=== PATIENT | male | born 1950 | race Caucasian/White ===

== ENCOUNTER → 2016-12-16 | Outpatient (CLI) | payer MEDICARE, OTHER ==
[~2016-12-16] MED LIST: AMLO10TA2 PO; ASPI1TAB; COUM2.5T17 PO; IBUP-1022; LISI-538 PO; METF500T13 PO; PERC5TAB12 PO; TYLE325T5 PO; amoxicillin OR; epipen IM
[2016-12-16 13:42] LABS: ALBUMIN 3.4 GM/DL (3.2-5.2); ALBUMIN/GLOBULIN RATIO 0.94 (1.00-1.93); ALKALINE PHOSPHATASE 83 U/L (45-117); ALT/SGPT 51 U/L (12-78); ANION GAP 9 MEQ/L (8-16); AST/SGOT 33 U/L (15-37); BILIRUBIN,TOTAL 0.5 MG/DL (0.2-1.0); BLOOD UREA NITROGEN 12 MG/DL (7-18); CALCIUM LEVEL 9.5 MG/DL (8.8-10.2); CARBON DIOXIDE LEVEL 24 MEQ/L (21-32); CHLORIDE LEVEL 106 MEQ/L (98-107); CHOLESTEROL LEVEL 91 MG/DL (<200); CREATININE FOR GFR 0.71 MG/DL (0.70-1.30); GLOMERULAR FILTRATION RATE > 60.0 (>49); GLUCOSE, FASTING 141 MG/DL (80-110); POTASSIUM SERUM 4.8 MEQ/L (3.5-5.1); SODIUM LEVEL 139 MEQ/L (136-145); TRIGLYCERIDES LEVEL 122 MG/DL (<150)
[2016-12-18 00:08] LABS: PSA TOTAL 0.4 ng/mL (0.0-4.0)
== END ==
LOC: M WUC 08:29
PROVIDERS: ATTEND Nurse Practitioner Family
DX: E78.5 Hyperlipidemia, unspecified (principal); Z12.5 Encounter for screening for malignant neoplasm of prostate

== ENCOUNTER 2017-09-16 15:30 | Emergency (ER) | payer MEDICARE, OTHER | END 2017-09-16 16:48 | disposition home or self-care (01) | LOC: M ED 15:30 | DX: S40.011A Contusion of right shoulder, initial encounter (principal); W00.2XXA Other fall from one level to another due to ice and snow, initial encounter; Y92.096 Garden or yard of other non-institutional residence as the place of occurrence of the external cause; I10 Essential (primary) hypertension; K21.9 Gastro-esophageal reflux disease without esophagitis; M54.5 Low back pain; E11.9 Type 2 diabetes mellitus without complications; Z96.653 Presence of artificial knee joint, bilateral; Z87.891 Personal history of nicotine dependence; Z88.5 Allergy status to narcotic agent; Z91.030 Bee allergy status; Z79.899 Other long term (current) drug therapy; Z79.82 Long term (current) use of aspirin; Z79.84 Long term (current) use of oral hypoglycemic drugs | CPT/HCPCS: 73030 ==

== ENCOUNTER → 2017-09-19 | Outpatient (CLI) | payer MEDICARE ==
[2017-09-19 09:11] LABS: BASO # 0.1 10^3/uL (0.0-0.2); BASO % 0.6 % (0.0-1.0); EOS # 0.5 10^3/uL (0.0-0.50); EOS % 6.1 % (0.0-3.0); HEMATOCRIT 44.8 % (42.0-52.0); HEMOGLOBIN 14.8 g/dl (13.5-17.5); IMMATURE GRANULOCYTE % 0.2 % (0-3.0); LYMPH # 2.2 10^3/uL (1.5-4.5); MEAN CORPUSCULAR HEMOGLOBIN 32.2 pg (27.0-33.0); MEAN CORPUSCULAR VOLUME 97.4 fl (80.0-96.0); MONO # 0.9 10^3/uL (0.0-0.8); MONO % 10.9 % (0.0-5.0); NEUTROPHILS # 4.8 10^3/uL (1.8-7.7); NEUTROPHILS % 56.2 % (36.0-66.0); PLATELET COUNT, AUTOMATED 337 10^3/uL (150-450); RED CELL DISTRIBUTION WIDTH 14.3 % (11.5-14.5); WHITE BLOOD COUNT 8.5 10^3/uL (4.0-10.0)
[2017-09-19 10:00] LABS: ALBUMIN 3.7 GM/DL (3.2-5.2); ALKALINE PHOSPHATASE 85 U/L (45-117); ALT/SGPT 51 U/L (12-78); ANION GAP 4 MEQ/L (8-16); AST/SGOT 38 U/L (7-37); BILIRUBIN,TOTAL 0.6 MG/DL (0.2-1.0); BLOOD UREA NITROGEN 16 MG/DL (7-18); CALCIUM LEVEL 9.8 MG/DL (8.8-10.2); CARBON DIOXIDE LEVEL 26 MEQ/L (21-32); CHLORIDE LEVEL 108 MEQ/L (98-107); CHOLESTEROL LEVEL 98 MG/DL (<200); CHOLESTEROL RISK RATIO 2.969 (<5); GLOMERULAR FILTRATION RATE > 60.0 (>49); GLUCOSE, FASTING 170 MG/DL (70-100); HDL CHOLESTEROL 33 MG/DL (>40); LDL CHOLESTEROL 42.2 MG/DL (<100); NON-HDL-C 65 MG/DL; SODIUM LEVEL 138 MEQ/L (136-145); TOTAL PROTEIN 7.8 GM/DL (6.4-8.2); TRIGLYCERIDES LEVEL 114 MG/DL (<150)
== END ==
LOC: M WUC 08:07
DX: I10 Essential (primary) hypertension (principal)
CPT/HCPCS: 80053

== ENCOUNTER → 2017-10-01 | Outpatient (CLI) | payer MEDICARE ==
[2017-10-01 15:58] LABS: ANION GAP 7 MEQ/L (8-16); BLOOD UREA NITROGEN 12 MG/DL (7-18); CALCIUM LEVEL 9.6 MG/DL (8.8-10.2); CARBON DIOXIDE LEVEL 26 MEQ/L (21-32); CHLORIDE LEVEL 107 MEQ/L (98-107); CREATININE FOR GFR 0.83 MG/DL (0.70-1.30); GLOMERULAR FILTRATION RATE > 60.0 (>49); GLUCOSE, FASTING 77 MG/DL (70-100); POTASSIUM SERUM 4.7 MEQ/L (3.5-5.1); SODIUM LEVEL 140 MEQ/L (136-145)
== END ==
LOC: M LAB 15:03
DX: I10 Essential (primary) hypertension (principal)
CPT/HCPCS: 80048

== ENCOUNTER → 2018-01-01 | Outpatient (CLI) | payer MEDICARE ==
[2018-01-03 14:10] LABS: PSA TOTAL 0.5 ng/mL (0.0-4.0)
== END ==
LOC: M WUC 15:55
DX: Z12.5 Encounter for screening for malignant neoplasm of prostate (principal)
CPT/HCPCS: 84154

== ENCOUNTER → 2018-01-19 | Outpatient (CLI) | payer MEDICARE | LOC: M WUC 14:09 | DX: M19.011 Primary osteoarthritis, right shoulder (principal) | CPT/HCPCS: 73000 ==

== ENCOUNTER → 2018-05-17 | Outpatient (CLI) | payer MEDICARE ==
[~2018-05-17] MED LIST changes: -AMLO10TA2 PO; +AMLO10TA4 PO; +ATOR40TA75; +GLIP10TA6; +METO50TA7 PO; +NORCOTAB PO
[2018-05-17 17:39] LABS: BASO # 0.1 10^3/uL (0.0-0.2); BASO % 0.6 % (0.0-1.0); EOS # 0.4 10^3/uL (0.0-0.50); EOS % 4.1 % (0.0-3.0); HEMATOCRIT 46.3 % (42.0-52.0); HEMOGLOBIN 14.7 g/dl (13.5-17.5); LYMPH # 2.4 10^3/uL (1.5-4.5); LYMPH % 27.9 % (24.0-44.0); MEAN CORPUSCULAR HGB CONC 31.7 g/dl (32.0-36.5); MONO # 0.8 10^3/uL (0.0-0.8); MONO % 9.8 % (0.0-5.0); NEUTROPHILS # 4.9 10^3/uL (1.8-7.7); NEUTROPHILS % 57.4 % (36.0-66.0); PLATELET COUNT, AUTOMATED 276 10^3/uL (150-450); RED BLOOD COUNT 4.45 10^6/uL (4.30-6.10); WHITE BLOOD COUNT 8.6 10^3/uL (4.0-10.0)
[2018-05-17 17:41] LABS: ALBUMIN 3.5 GM/DL (3.2-5.2); ALT/SGPT 53 U/L (12-78); BILIRUBIN,TOTAL 0.5 MG/DL (0.2-1.0); BLOOD UREA NITROGEN 12 MG/DL (7-18); CALCIUM LEVEL 9.3 MG/DL (8.8-10.2); CARBON DIOXIDE LEVEL 26 MEQ/L (21-32); CHLORIDE LEVEL 106 MEQ/L (98-107); CHOLESTEROL LEVEL 99 MG/DL (<200); CHOLESTEROL RISK RATIO 3.093 (<5); CREATININE FOR GFR 0.75 MG/DL (0.70-1.30); GLOMERULAR FILTRATION RATE > 60.0 (>49); GLUCOSE, FASTING 152 MG/DL (70-100); HDL CHOLESTEROL 32 MG/DL (>40); LDL CHOLESTEROL 45 MG/DL (<100); NON-HDL-C 67 MG/DL; POTASSIUM SERUM 5.4 MEQ/L (3.5-5.1); SODIUM LEVEL 139 MEQ/L (136-145); TOTAL PROTEIN 7.3 GM/DL (6.4-8.2); TRIGLYCERIDES LEVEL 110 MG/DL (<150)
== END ==
LOC: M WUC 08:02
PROVIDERS: ATTEND Nurse Practitioner Family
DX: E78.5 Hyperlipidemia, unspecified (principal); I10 Essential (primary) hypertension

== ENCOUNTER → 2018-11-03 | Outpatient (CLI) | payer MEDICARE ==
[~2018-11-03] MED LIST changes: -AMLO10TA4 PO; +AMLO10TA5 PO; -ASPI1TAB; +ASPI81TA26; +HYDR-3715 PO; -NORCOTAB PO
[2018-11-03 09:34] LABS: BASO # 0.1 10^3/uL (0.0-0.2); BASO % 0.5 % (0.0-1.0); EOS # 0.4 10^3/uL (0.0-0.50); EOS % 4.4 % (0.0-3.0); HEMATOCRIT 45.5 % (42.0-52.0); HEMOGLOBIN 14.9 g/dl (13.5-17.5); LYMPH # 2.5 10^3/uL (1.5-4.5); LYMPH % 26.5 % (24.0-44.0); MEAN CORPUSCULAR HEMOGLOBIN 32.7 pg (27.0-33.0); MEAN CORPUSCULAR HGB CONC 32.7 g/dl (32.0-36.5); MONO # 0.9 10^3/uL (0.0-0.8); MONO % 9.2 % (0.0-5.0); NEUTROPHILS # 5.5 10^3/uL (1.8-7.7); NEUTROPHILS % 59.2 % (36.0-66.0); PLATELET COUNT, AUTOMATED 301 10^3/uL (150-450); RED BLOOD COUNT 4.55 10^6/uL (4.30-6.10); WHITE BLOOD COUNT 9.3 10^3/uL (4.0-10.0)
[2018-11-03 10:51] LABS: ALBUMIN 3.5 GM/DL (3.2-5.2); ALT/SGPT 51 U/L (12-78); BILIRUBIN,TOTAL 0.4 MG/DL (0.2-1.0); BLOOD UREA NITROGEN 18 MG/DL (7-18); CALCIUM LEVEL 9.9 MG/DL (8.8-10.2); CARBON DIOXIDE LEVEL 25 MEQ/L (21-32); CHLORIDE LEVEL 107 MEQ/L (98-107); CHOLESTEROL LEVEL 116 MG/DL (<200); CHOLESTEROL RISK RATIO 3.411 (<5); CREATININE FOR GFR 0.77 MG/DL (0.70-1.30); GLOMERULAR FILTRATION RATE > 60.0 (>49); GLUCOSE, FASTING 138 MG/DL (70-100); HDL CHOLESTEROL 34 MG/DL (>40); LDL CHOLESTEROL 52 MG/DL (<100); NON-HDL-C 82 MG/DL; POTASSIUM SERUM 5.5 MEQ/L (3.5-5.1); SODIUM LEVEL 140 MEQ/L (136-145); TOTAL PROTEIN 7.6 GM/DL (6.4-8.2); TRIGLYCERIDES LEVEL 152 MG/DL (<150)
[2018-11-03 12:06] LABS: HEMOGLOBIN A1c 7.3 %
== END ==
LOC: M WUC 08:07
PROVIDERS: ATTEND Nurse Practitioner Family
DX: E11.9 Type 2 diabetes mellitus without complications (principal); I10 Essential (primary) hypertension; E78.5 Hyperlipidemia, unspecified

== ENCOUNTER → 2019-05-02 | Outpatient (CLI) | payer MEDICARE, OTHER ==
[2019-05-02 13:13] LABS: BASO # 0.1 10^3/uL (0.0-0.2); BASO % 0.7 % (0.0-1.0); EOS # 0.4 10^3/uL (0.0-0.5); EOS % 4.6 % (0.0-3.0); HEMATOCRIT 45.4 % (42.0-52.0); HEMOGLOBIN 14.7 g/dl (13.5-17.5); LYMPH # 1.9 10^3/uL (1.5-5.0); LYMPH % 23.8 % (24.0-44.0); MEAN CORPUSCULAR HEMOGLOBIN 33.2 pg (27.0-33.0); MEAN CORPUSCULAR HGB CONC 32.4 g/dl (32.0-36.5); MEAN CORPUSCULAR VOLUME 102.5 fl (80.0-96.0); MONO # 0.8 10^3/uL (0.0-0.8); MONO % 10.2 % (0.0-5.0); NEUTROPHILS # 4.9 10^3/uL (1.5-8.5); NEUTROPHILS % 60.5 % (36.0-66.0); PLATELET COUNT, AUTOMATED 348 10^3/uL (150-450); RED BLOOD COUNT 4.43 10^6/uL (4.30-6.10)
[2019-05-02 13:18] LABS: ALBUMIN 3.4 GM/DL (3.2-5.2); ALT/SGPT 36 U/L (12-78); BILIRUBIN,TOTAL 0.6 MG/DL (0.2-1.0); BLOOD UREA NITROGEN 12 MG/DL (7-18); CALCIUM LEVEL 9.2 MG/DL (8.8-10.2); CARBON DIOXIDE LEVEL 27 MEQ/L (21-32); CHLORIDE LEVEL 109 MEQ/L (98-107); CHOLESTEROL LEVEL 93 MG/DL (<200); CHOLESTEROL RISK RATIO 2.513 (<5); CREATININE FOR GFR 0.74 MG/DL (0.70-1.30); FREE T4 0.92 NG/DL (0.76-1.46); GLOMERULAR FILTRATION RATE > 60.0 (>42); GLUCOSE, FASTING 135 MG/DL (70-100); HDL CHOLESTEROL 37 MG/DL (>40); LDL CHOLESTEROL 38 MG/DL (<100); MAGNESIUM LEVEL 1.8 MG/DL (1.8-2.4); NON-HDL-C 56 MG/DL; POTASSIUM SERUM 5.2 MEQ/L (3.5-5.1); SODIUM LEVEL 140 MEQ/L (136-145); TOTAL PROTEIN 7.1 GM/DL (6.4-8.2); TRIGLYCERIDES LEVEL 89 MG/DL (<150)
[2019-05-02 13:24] LABS: HEMOGLOBIN A1c 6.9 %
[2019-05-02 13:46] LABS: MAU/CREAT RATIO 216.6 MCG/MG (0.0-30.0)
== END ==
LOC: M WUC 08:25
PROVIDERS: ATTEND Nurse Practitioner Family
DX: E11.9 Type 2 diabetes mellitus without complications (principal); I10 Essential (primary) hypertension; E78.5 Hyperlipidemia, unspecified

== ENCOUNTER → 2019-11-19 | Outpatient (CLI) | payer MEDICARE, OTHER ==
[~2019-11-19] MED LIST changes: -AMLO10TA5 PO; +AMLO1TAB25 PO; +HYDR-3490 PO; -LISI-538 PO; +LISI20TA33 PO; +METF10004 PO
[2019-11-19 10:39] LABS: BASO # 0.1 10^3/uL (0.0-0.2); BASO % 0.7 % (0.0-1.0); EOS # 0.5 10^3/uL (0.0-0.5); EOS % 5.8 % (0.0-3.0); HEMATOCRIT 45.1 % (42.0-52.0); HEMOGLOBIN 14.9 g/dl (13.5-17.5); LYMPH # 2.5 10^3/uL (1.5-5.0); LYMPH % 28.7 % (24.0-44.0); MEAN CORPUSCULAR HEMOGLOBIN 33.3 pg (27.0-33.0); MEAN CORPUSCULAR VOLUME 100.7 fl (80.0-96.0); MONO # 0.9 10^3/uL (0.0-0.8); MONO % 10.5 % (0.0-5.0); NEUTROPHILS # 4.6 10^3/uL (1.5-8.5); NEUTROPHILS % 54.1 % (36.0-66.0); PLATELET COUNT, AUTOMATED 270 10^3/uL (150-450); RED BLOOD COUNT 4.48 10^6/uL (4.30-6.10); WHITE BLOOD COUNT 8.6 10^3/uL (4.0-10.0)
[2019-11-19 11:05] LABS: HEMOGLOBIN A1c 7.4 %
[2019-11-19 11:17] LABS: ALBUMIN 3.5 GM/DL (3.2-5.2); ALT/SGPT 48 U/L (12-78); BILIRUBIN,TOTAL 0.5 MG/DL (0.2-1.0); BLOOD UREA NITROGEN 17 MG/DL (7-18); CALCIUM LEVEL 9.5 MG/DL (8.8-10.2); CARBON DIOXIDE LEVEL 28 MEQ/L (21-32); CHLORIDE LEVEL 105 MEQ/L (98-107); CHOLESTEROL LEVEL 90 MG/DL (<200); CHOLESTEROL RISK RATIO 3.214 (<5); CREATININE FOR GFR 0.79 MG/DL (0.70-1.30); FREE T4 1.01 NG/DL (0.76-1.46); GLOMERULAR FILTRATION RATE > 60.0 (>42); GLUCOSE, FASTING 140 MG/DL (70-100); HDL CHOLESTEROL 28 MG/DL (>40); LDL CHOLESTEROL 43 MG/DL (<100); NON-HDL-C 62 MG/DL; POTASSIUM SERUM 5.5 MEQ/L (3.5-5.1); SODIUM LEVEL 138 MEQ/L (136-145); TOTAL PROTEIN 7.6 GM/DL (6.4-8.2); TRIGLYCERIDES LEVEL 93 MG/DL (<150)
[2019-11-19 11:21] LABS: CREATININE, URINE 94.4 MG/DL; MAU/CREAT RATIO 151.4 MCG/MG (0.0-30.0)
== END ==
LOC: M WUC 08:06
PROVIDERS: ATTEND Nurse Practitioner Family
DX: E78.5 Hyperlipidemia, unspecified (principal); E11.9 Type 2 diabetes mellitus without complications; Z12.5 Encounter for screening for malignant neoplasm of prostate; D75.89 Other specified diseases of blood and blood-forming organs
CPT/HCPCS: 36415; 80053; 80061; 82043; 83036; 84439; 84443; 85025; G0103

== ENCOUNTER → 2019-11-24 | Outpatient (CLI) | payer MEDICARE ==
[~2019-11-24] MED LIST changes: -HYDR-3490 PO; +HYDR25TAB PO; +LISI-538 PO; -LISI20TA33 PO
[2019-11-24 12:34] LABS: BLOOD UREA NITROGEN 18 MG/DL (7-18); CALCIUM LEVEL 10.1 MG/DL (8.8-10.2); CARBON DIOXIDE LEVEL 29 MEQ/L (21-32); CHLORIDE LEVEL 105 MEQ/L (98-107); CREATININE FOR GFR 0.94 MG/DL (0.70-1.30); GLOMERULAR FILTRATION RATE > 60.0 (>42); GLUCOSE, FASTING 175 MG/DL (70-100); POTASSIUM SERUM 5.2 MEQ/L (3.5-5.1); SODIUM LEVEL 141 MEQ/L (136-145)
== END ==
LOC: M PLALAB 10:05
PROVIDERS: ATTEND Family Medicine
DX: I10 Essential (primary) hypertension (principal); E87.5 Hyperkalemia

== ENCOUNTER → 2019-12-01 | Outpatient (REF) | payer MEDICARE ==
[~2019-12-01] MED LIST changes: +AMLO10TA5 PO; -AMLO1TAB25 PO; -HYDR25TAB PO; -METF10004 PO
[2019-12-01 16:06] LABS: BLOOD UREA NITROGEN 18 MG/DL (7-18); CALCIUM LEVEL 9.4 MG/DL (8.8-10.2); CARBON DIOXIDE LEVEL 27 MEQ/L (21-32); CHLORIDE LEVEL 103 MEQ/L (98-107); CREATININE FOR GFR 0.94 MG/DL (0.70-1.30); GLOMERULAR FILTRATION RATE > 60.0 (>42); GLUCOSE, FASTING 189 MG/DL (70-100); POTASSIUM SERUM 4.5 MEQ/L (3.5-5.1); SODIUM LEVEL 135 MEQ/L (136-145)
== END ==
LOC: M SFHCPLAZ 14:21
PROVIDERS: ATTEND Family Medicine
DX: E87.5 Hyperkalemia (principal)
CPT/HCPCS: 36415; 80048; G0463

== ENCOUNTER 2020-02-25 13:58 | Emergency (ER) | payer MEDICARE ==
[~2020-02-25] VITALS: Ht 177.8 cm; Wt 90.9 kg
[~2020-02-25 13:58] MED LIST changes: -AMLO10TA5 PO; +AMLO1TAB25 PO
[2020-02-25] MEDS ORDERED: METF10004 PO (14:22)
[2020-02-25] MEDS ORDERED: LISI-538 PO (14:22)
[2020-02-25] MEDS ORDERED: HYDR25TAB PO (14:22)
[2020-02-25] MEDS ORDERED: ACETAMINOPHEN 500 MG TAB PO ONE (15:30)
--- NOTE | 2020-02-25 16:13 | REPVR ---
PROCEDURE INFORMATION: Exam: US Right Non-Vascular Joint or Other Extremity Structure, Limited Lower Extremity Exam date and time: 02/25/2020 3:42 PM Age: 70 years old Clinical indication: Injury or trauma; Injury history: Pallet fell on back of right leg; Initial encounter; Abrasion; Lower leg; Additional info: Blunt trauma rle TECHNIQUE: Imaging protocol: Right US joint or other nonvascular extremity structure or structures. Real-time ultrasound with image documentation. Limited study. Exam focused on the lower extremity in the region of clinical interest. COMPARISON: No relevant prior studies available. FINDINGS: Soft tissues: Edema in the area of concern in the posterior calf. Vasculature: Complex fluid collection measuring 8.7 x 1.2 x 4.1 cm with no vascular flow. IMPRESSION: Complex fluid collection in the posterior calf measuring 8.7 x 1 2 x 4.1 cm. Findings may suggest hematoma. Electronically signed by: Jony Owens On 02/25/2020 16:13:23 PM
--- NOTE | 2020-02-25 16:19 | REPVR ---
PROCEDURE INFORMATION: Exam: XR Right Tibia and Fibula Exam date and time: 02/25/2020 3:45 PM Age: 70 years old Clinical indication: Pain; Lower leg; Right; Additional info: Rle contusion TECHNIQUE: Imaging protocol: XR Right tibia and fibula. Views: 2 views. COMPARISON: No relevant prior studies available. FINDINGS: Bones/joints: Total knee arthroplasty. Diffuse demineralization of the bones. Moderate size calcaneal spur. No acute fracture. No dislocation. Soft tissues: Normal. Vasculature: Vascular calcifications. IMPRESSION: No acute abnormality. Electronically signed by: Jony Owens On 02/25/2020 16:19:11 PM
[2020-02-25 16:59] VITALS: BP 141/86
--- NOTE | 2020-02-25 18:10 | ED PDOC ---
Post-Departure Follow-Up liv dan faxed formal report of us lower extremity for fu Minh Pereyra MD Feb 25, 2020 18:10
== END 2020-02-25 17:14 | disposition home or self-care (01) ==
LOC: M ED 13:58
DX: S80.11XA Contusion of right lower leg, initial encounter (principal); S80.811A Abrasion, right lower leg, initial encounter; W22.8XXA Striking against or struck by other objects, initial encounter; Y92.513 Shop (commercial) as the place of occurrence of the external cause; I10 Essential (primary) hypertension; E11.9 Type 2 diabetes mellitus without complications; E78.5 Hyperlipidemia, unspecified; K21.9 Gastro-esophageal reflux disease without esophagitis; I25.2 Old myocardial infarction; Z79.899 Other long term (current) drug therapy; Z79.84 Long term (current) use of oral hypoglycemic drugs; Z79.82 Long term (current) use of aspirin; Z88.5 Allergy status to narcotic agent; Z91.030 Bee allergy status

== ENCOUNTER → 2020-09-13 | Outpatient (REF) | payer MEDICARE ==
[~2020-09-13] MED LIST changes: +HYDR-3490 PO; -LISI-538 PO; +LISI20TA33 PO; +METF10004 PO
[2020-09-13 14:22] LABS: BASO # 0.1 10^3/uL (0.0-0.2); BASO % 0.7 % (0.0-1.0); EOS # 0.4 10^3/uL (0.0-0.5); EOS % 4.4 % (0.0-3.0); HEMATOCRIT 42.3 % (42.0-52.0); HEMOGLOBIN 13.7 g/dl (13.5-17.5); LYMPH # 2.4 10^3/uL (1.5-5.0); LYMPH % 26.8 % (24.0-44.0); MEAN CORPUSCULAR HEMOGLOBIN 32.5 pg (27.0-33.0); MEAN CORPUSCULAR HGB CONC 32.4 g/dl (32.0-36.5); MEAN CORPUSCULAR VOLUME 100.2 fl (80.0-96.0); MONO # 0.9 10^3/uL (0.0-0.8); MONO % 10.1 % (2.0-8.0); NEUTROPHILS # 5.2 10^3/uL (1.5-8.5); NEUTROPHILS % 57.7 % (36.0-66.0); PLATELET COUNT, AUTOMATED 338 10^3/uL (150-450); RED BLOOD COUNT 4.22 10^6/uL (4.30-6.10)
[2020-09-13 17:57] LABS: ALBUMIN 3.7 GM/DL (3.2-5.2); ALT/SGPT 53 U/L (12-78); BILIRUBIN,TOTAL 0.5 MG/DL (0.2-1.0); BLOOD UREA NITROGEN 19 MG/DL (7-18); CALCIUM LEVEL 10.4 MG/DL (8.8-10.2); CARBON DIOXIDE LEVEL 28 MEQ/L (21-32); CHLORIDE LEVEL 102 MEQ/L (98-107); CHOLESTEROL LEVEL 123 MG/DL (<200); CHOLESTEROL RISK RATIO 3.324 (<5); CREATININE FOR GFR 0.78 MG/DL (0.70-1.30); GLOMERULAR FILTRATION RATE > 60.0 (>42); GLUCOSE, FASTING 242 MG/DL (70-100); HDL CHOLESTEROL 37 MG/DL (>40); LDL CHOLESTEROL 43 MG/DL (<100); NON-HDL-C 86 MG/DL; POTASSIUM SERUM 4.4 MEQ/L (3.5-5.1); SODIUM LEVEL 135 MEQ/L (136-145); TOTAL PROTEIN 7.8 GM/DL (6.4-8.2); TRIGLYCERIDES LEVEL 213 MG/DL (<150)
[2020-09-13 19:11] LABS: CREATININE, URINE 44.2 MG/DL; MALB URINE SIEMENS 26.7 MG/L; MAU/CREAT RATIO 60.4 MCG/MG (0.0-30.0)
[2020-09-14 14:21] LABS: HEMOGLOBIN A1c 7.8 %
== END ==
LOC: M SFHCPLAZ 10:23
PROVIDERS: ATTEND Nurse Practitioner Family
DX: D75.89 Other specified diseases of blood and blood-forming organs (principal); E11.9 Type 2 diabetes mellitus without complications; E78.5 Hyperlipidemia, unspecified; Z12.5 Encounter for screening for malignant neoplasm of prostate
CPT/HCPCS: 36415; 80053; 80061; 82043; 83036; 85025; G0103

== ENCOUNTER → 2021-01-15 | Outpatient (REF) | payer MEDICARE | LOC: M LAB REF 18:52 | PROVIDERS: ATTEND Physician Assistant | DX: C44.311 Basal cell carcinoma of skin of nose (principal) ==

== ENCOUNTER → 2021-03-29 | Outpatient (REF) | payer MEDICARE | LOC: M LAB REF 14:01 | PROVIDERS: ATTEND Dermatology | DX: D48.9 Neoplasm of uncertain behavior, unspecified (principal) ==

== ENCOUNTER → 2021-04-17 | Outpatient (CLI) | payer MEDICARE ==
--- NOTE | 2021-04-17 15:59 | RADONC.CN ---
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 He is seen for consideration of RT as an alternative to Moh's given location. Diagnosis/Treatment History Oncologic History 2000: Reports history of SCC on scalp s/p excision September 2020: Noted a white pimple-like nodule on the nasal tip. This developed a scab and minor bleeding with trauma which became bothersome. This led him to see Dr. Eckert who performed a biopsy on 03/30/21 which showed BCC. Interval History Dane is an avid garrison and outdoorsman lifelong. He has no pain from the lesion on the nose. It has not grown much per his estimation since he noticed it in Spring of this year. He has no additional complaints today. Past Medical History: CAD DM2 HPL HTN Skin cancer Past Surgical History: Knee replacements 2015 Cholecystectomy 1981 Colonoscopy 2015 Hernia repair 1982 Left rotator cuff repair 2013 Family History: Sister alive skin cancer Social History: 10 pack year former smoker quit 1969 Drinks 1 beer per day everyday Allergies / Meds Allergies: Coded Allergies: bee venom protein (honey bee) (Verified Allergy, Unknown, 02/25/20) morphine (Verified Adverse Reaction, Unknown, hypotension, 02/25/20) Home Meds Reported Medications Hydrochlorothiazide (Hydrochlorothiazide) 25 Mg Tablet, 1 TAB PO DAILY 02/25/20 Metformin HCl (Metformin HCl) 1,000 Mg Tablet, 1 TAB PO BID 02/25/20 Lisinopril (Lisinopril) 20 Mg Tablet, 1 TAB PO DAILY for 30 Days, #30 TAB 02/25/20 Atorvastatin Calcium (Atorvastatin Calcium) 40 Mg Tab 09/16/17 Glipizide (Glipizide) 10 Mg Tab, DAILY 09/16/17 Metoprolol Tartrate (Metoprolol Tartrate) 50 Mg Tab, 50 MG PO BID 09/16/17 Aspirin (Aspirin EC) 81 Mg Tab, TAB 12/20/14 [epipen] No Conflict Check, IM PRN 08/25/14 Vital Signs Ht 70" Wt 201 lbs BMI 28.7 P 67 RR 18 BP 136/77 O2 98% Pain 0 Fatigue 0 ENT EXAM: Atraumatic, Nares Patent, Other ENT (There is a dark scabbed lesion on the midline tip of the nose ~ 1 cm round. No additional lesions on the face or neck. ) Chest Exam: Clear to auscultation Heart Exam: Rate Normal Neuro Exam: Normal Gait, Normal Speech, Cranial Nerves 3-12 NL Psych Exam: Mental status NL Diagnostic and Laboratory Diagnostic Review Radiologic images, relevant labs and pathology reports were personally reviewed and discussed with Mr. Garrison. Assessment and Plan Impression Mr. Garrison is a 71 year old male with a history of sun exposure and a recently diagnosed BCC of the nasal tip [id number] stage I. He is seen for consideration of RT as an alternative to Moh's given location. Stage BCC nasal tip [id number] stage I Performance Status ECOG 0 Plan We had an extensive discussion with Mr. Garrison regarding the diagnosis at hand and available therapeutic options. He has a small lesion on the nasal tip. It is amenable to RT, as a non-invasive alternative to Moh's. I recommend 60 Gy in 30 fractions with 6 MeV electrons and 0.5 cm custom wax bolus. I discussed the rationale for a longer treatment schedule is to minimize the risk of moist desquamation which can be painful and also to respect the sensitivity of underlying cartilage to fraction size. With this regiment only redness, dryness and dry peeling are expected. We discussed the logistics of receiving radiation therapy in detail including the need for a 1-time planning session. After discussing the risks, benefits and alternatives to radiation therapy, Mr. Garrison was amenable to pursuing radiotherapy. All questions were answered to the patient's satisfaction. We instructed the patient that if there were any questions,concerns or changes in clinical status in the interim to contact us. Recommendations 60 Gy in 30 fractions to the nasal tip lesion Simulation in the coming week Billing Statement Total time of [30] minutes was spent preparing for the visit [1], obtaining HPI [5], examining the patient [3], reviewing diagnostic tests [1], discussing management options [12], coordinating care [2], and writing this note [6]. NEREYDA MEDINA MD Apr 17, 2021 15:59
== END ==
LOC: M ONCR 14:51
PROVIDERS: ATTEND General Practice
DX: C44.311 Basal cell carcinoma of skin of nose (principal); Z88.5 Allergy status to narcotic agent; Z91.030 Bee allergy status; Z79.899 Other long term (current) drug therapy

== ENCOUNTER 2021-05-31 08:25 | Outpatient (RCR) | payer MEDICARE | END 2021-06-01 | LOC: M ONCR 08:25 | PROVIDERS: ATTEND General Practice | DX: C44.311 Basal cell carcinoma of skin of nose (principal) ==

== ENCOUNTER → 2021-07-02 | Outpatient (RCR) | payer MEDICARE ==
[2021-06-06 08:37] VITALS: BP 75/75
[~2021-07-02] VITALS: Ht 177.8 cm; Wt 91.0 kg
== END ==
LOC: M ONCR 06-04 08:33
PROVIDERS: ATTEND General Practice
DX: C44.311 Basal cell carcinoma of skin of nose (principal)

== ENCOUNTER 2021-07-06 08:20 | Outpatient (RCR) | payer MEDICARE ==
[2021-06-06 08:37] VITALS: BP 75/75
== END 2021-07-30 ==
LOC: M ONCR 08:20
PROVIDERS: ATTEND General Practice
DX: C44.311 Basal cell carcinoma of skin of nose (principal); L53.8 Other specified erythematous conditions

== ENCOUNTER → 2021-08-03 | Outpatient (CLI) | payer MEDICARE | LOC: M ONCR 08:55 | PROVIDERS: ATTEND General Practice | DX: C44.311 Basal cell carcinoma of skin of nose (principal); Z92.3 Personal history of irradiation ==

== ENCOUNTER → 2022-02-11 | Outpatient (CLI) | payer MEDICARE ==
[2022-02-11 10:07] LABS: HEMOGLOBIN A1c 8.8 %
[2022-02-11 10:12] LABS: ALBUMIN 3.6 GM/DL (3.2-5.2); ALT/SGPT 60 U/L (12-78); BILIRUBIN,TOTAL 0.8 MG/DL (0.2-1.0); BLOOD UREA NITROGEN 19 MG/DL (7-18); CALCIUM LEVEL 10.9 MG/DL (8.8-10.2); CARBON DIOXIDE LEVEL 26 MEQ/L (21-32); CHLORIDE LEVEL 103 MEQ/L (98-107); CHOLESTEROL LEVEL 115 MG/DL (<200); CHOLESTEROL RISK RATIO 3.709 (<5); GLOMERULAR FILTRATION RATE > 60.0 (>42); GLUCOSE, FASTING 134 MG/DL (70-100); HDL CHOLESTEROL 31 MG/DL (>40); LDL CHOLESTEROL 50 MG/DL (<100); NON-HDL-C 84 MG/DL; POTASSIUM SERUM 5.2 MEQ/L (3.5-5.1); SODIUM LEVEL 134 MEQ/L (136-145); TOTAL PROTEIN 7.7 GM/DL (6.4-8.2); TRIGLYCERIDES LEVEL 171 MG/DL (<150)
[2022-02-11 10:23] LABS: MALB URINE SIEMENS 89.5 MG/L; MAU/CREAT RATIO 48.9 MCG/MG (0.0-30.0)
[2022-02-11 10:32] LABS: BASO # 0.1 10^3/uL (0.0-0.2); BASO % 0.7 % (0.0-1.0); EOS # 0.5 10^3/uL (0.0-0.5); HEMATOCRIT 42.3 % (42.0-52.0); HEMOGLOBIN 14.1 g/dl (13.5-17.5); LYMPH # 2.7 10^3/uL (1.5-5.0); LYMPH % 25.2 % (24.0-44.0); MEAN CORPUSCULAR HEMOGLOBIN 32.8 pg (27.0-33.0); MEAN CORPUSCULAR HGB CONC 33.3 g/dl (32.0-36.5); MEAN CORPUSCULAR VOLUME 98.4 fl (80.0-96.0); MONO % 9.4 % (2.0-8.0); NEUTROPHILS # 6.4 10^3/uL (1.5-8.5); NEUTROPHILS % 59.3 % (36.0-66.0); PLATELET COUNT, AUTOMATED 365 10^3/uL (150-450); WHITE BLOOD COUNT 10.8 10^3/uL (4.0-10.0)
[2022-02-11 10:51] LABS: VITAMIN B12 LEVEL 377 PG/ML (247-911)
== END ==
LOC: M LAB 08:29
PROVIDERS: ATTEND Nurse Practitioner Family
DX: D75.89 Other specified diseases of blood and blood-forming organs (principal); E11.9 Type 2 diabetes mellitus without complications; E78.5 Hyperlipidemia, unspecified; Z12.5 Encounter for screening for malignant neoplasm of prostate
CPT/HCPCS: 36415; 80053; 80061; 82043; 82607; 83036; 85025; G0103

== ENCOUNTER → 2022-02-25 | Outpatient (CLI) | payer MEDICARE ==
[~2022-02-25] MED LIST changes: -ASPI81TA26; +ASPI81TA26 PO; -ATOR40TA75; +ATOR40TA75 PO; -GLIP10TA6; +GLIP10TA6 PO; +NORV5TAB PO
== END ==
LOC: M LABSMTC 11:01
PROVIDERS: ATTEND Anesthesiology
DX: Z01.812 Encounter for preprocedural laboratory examination (principal); Z20.822 Contact with and (suspected) exposure to COVID-19

== ENCOUNTER 2022-02-28 07:01 | Day surgery (SDC) | payer MEDICARE ==
[~2022-02-28] VITALS: Ht 177.8 cm; Wt 88.4 kg
[~2022-02-28 07:01] MED LIST changes: +NS 1,000 ML IV ONE
[2022-02-28] MEDS ORDERED: propofoL 200 MG/20 ML VIAL As Ordered ONE (08:00)
[2022-02-28] MEDS ORDERED: LIDOCAINE 2% 100MG/5ML SDV (FOR ANES.) As Ordered ONE (08:00)
[2022-02-28] MEDS ORDERED: PHENYLephrine 500MCG 5ML (100MCG/ML) SYRINGE As Ordered ONE (08:09)
[2022-02-28 08:35] VITALS: BP 128/77
== END 2022-02-28 08:43 | disposition home or self-care (01) ==
LOC: M OPP 07:01
PROVIDERS: ATTEND Internal Medicine Gastroenterology
DX: Z12.11 Encounter for screening for malignant neoplasm of colon (principal); Z80.0 Family history of malignant neoplasm of digestive organs; D12.2 Benign neoplasm of ascending colon; K63.5 Polyp of colon; K62.1 Rectal polyp; Z79.02 Long term (current) use of antithrombotics/antiplatelets; Z79.82 Long term (current) use of aspirin; Z79.84 Long term (current) use of oral hypoglycemic drugs; Z79.899 Other long term (current) drug therapy; Z88.5 Allergy status to narcotic agent; Z91.030 Bee allergy status; E11.9 Type 2 diabetes mellitus without complications; I10 Essential (primary) hypertension; Z95.5 Presence of coronary angioplasty implant and graft; Z86.718 Personal history of other venous thrombosis and embolism; Z85.828 Personal history of other malignant neoplasm of skin; Z92.3 Personal history of irradiation
CPT/HCPCS: 45385; 88305; J2370

== ENCOUNTER → 2022-04-22 | Outpatient (CLI) | payer MEDICARE ==
[~2022-04-22] MED LIST changes: -NS 1,000 ML IV ONE
[2022-04-22 13:37] LABS: BASO % 0.4 % (0.0-1.0); EOS # 0.4 10^3/uL (0.0-0.5); EOS % 3.5 % (0.0-3.0); HEMATOCRIT 44.6 % (42.0-52.0); HEMOGLOBIN 14.4 g/dl (13.5-17.5); LYMPH # 2.9 10^3/uL (1.5-5.0); LYMPH % 27.8 % (24.0-44.0); MEAN CORPUSCULAR HEMOGLOBIN 32.7 pg (27.0-33.0); MEAN CORPUSCULAR HGB CONC 32.3 g/dl (32.0-36.5); MEAN CORPUSCULAR VOLUME 101.1 fl (80.0-96.0); MONO # 1.1 10^3/uL (0.0-0.8); MONO % 10.6 % (2.0-8.0); NEUTROPHILS % 57.3 % (36.0-66.0); PLATELET COUNT, AUTOMATED 363 10^3/uL (150-450); RED BLOOD COUNT 4.41 10^6/uL (4.30-6.10); WHITE BLOOD COUNT 10.4 10^3/uL (4.0-10.0)
[2022-04-22 14:16] LABS: ALBUMIN 3.8 G/DL (3.2-5.2); ALKALINE PHOSPHATASE 76 U/L (46-116); ALT/SGPT 52 U/L (7.0-40); AST/SGOT 48 U/L (<34); BILIRUBIN,TOTAL 0.6 MG/DL (0.3-1.2); BLOOD UREA NITROGEN 16 MG/DL (9-23); CALCIUM LEVEL 9.4 MG/DL (8.3-10.6); CARBON DIOXIDE LEVEL 25 MMOL/L (20-31); CHLORIDE LEVEL 102 MMOL/L (98-107); CREATININE FOR GFR 0.78 MG/DL (0.70-1.30); GLOMERULAR FILTRATION RATE > 60.0 (>42); GLUCOSE, FASTING 150 MG/DL (74-106); POTASSIUM SERUM 5.1 MMOL/L (3.5-5.1); SODIUM LEVEL 136 MMOL/L (136-145); TOTAL 25(OH) VITAMIN D 25.2 NG/ML (20.0-100.0); TOTAL PROTEIN 7.3 G/DL (5.7-8.2)
== END ==
LOC: M PLALAB 12:08
PROVIDERS: ATTEND Nurse Practitioner Family
DX: E55.9 Vitamin D deficiency, unspecified (principal); E11.9 Type 2 diabetes mellitus without complications; I10 Essential (primary) hypertension; M77.11 Lateral epicondylitis, right elbow

== ENCOUNTER → 2022-09-16 | Outpatient (CLI) | payer MEDICARE ==
[2022-09-16 14:32] LABS: BASO # 0.1 10^3/uL (0.0-0.2); BASO % 0.5 % (0.0-1.0); EOS # 0.4 10^3/uL (0.0-0.5); HEMOGLOBIN 14.3 g/dl (13.5-17.5); LYMPH # 2.6 10^3/uL (1.5-5.0); LYMPH % 26.6 % (24.0-44.0); MEAN CORPUSCULAR HEMOGLOBIN 33.3 pg (27.0-33.0); MEAN CORPUSCULAR HGB CONC 33.3 g/dl (32.0-36.5); MONO # 0.9 10^3/uL (0.0-0.8); MONO % 9.5 % (2.0-8.0); NEUTROPHILS # 5.7 10^3/uL (1.5-8.5); NEUTROPHILS % 59.1 % (36.0-66.0); PLATELET COUNT, AUTOMATED 373 10^3/uL (150-450); WHITE BLOOD COUNT 9.6 10^3/uL (4.0-10.0)
[2022-09-16 14:37] LABS: ALBUMIN 3.6 G/DL (3.2-5.2); ALKALINE PHOSPHATASE 84 U/L (46-116); ALT/SGPT 73 U/L (7.0-40); AST/SGOT 54 U/L (<34); BILIRUBIN,TOTAL 0.6 MG/DL (0.3-1.2); BLOOD UREA NITROGEN 18 MG/DL (9-23); CALCIUM LEVEL 9.4 MG/DL (8.3-10.6); CARBON DIOXIDE LEVEL 25 MMOL/L (20-31); CHLORIDE LEVEL 103 MMOL/L (98-107); CHOLESTEROL LEVEL 116 MG/DL (<200); CHOLESTEROL RISK RATIO 3.59 (<5); GLOMERULAR FILTRATION RATE > 60.0 (>42); GLUCOSE, FASTING 206 MG/DL (74-106); HDL CHOLESTEROL 32.3 MG/DL (>40); LDL CHOLESTEROL 53.5 MG/DL (<100); NON-HDL-C 83.7 MG/DL; POTASSIUM SERUM 5.2 MMOL/L (3.5-5.1); SODIUM LEVEL 135 MMOL/L (136-145); TOTAL PROTEIN 7.8 G/DL (5.7-8.2); TRIGLYCERIDES LEVEL 151 MG/DL (<150)
[2022-09-16 14:55] LABS: CREATININE, URINE 114.2 MG/DL; MAU/CREAT RATIO 143.6 MCG/MG (0.0-30.0)
[2022-09-16 15:39] LABS: HEMOGLOBIN A1c 8.9 % (4.0-6.0)
== END ==
LOC: M PLALAB 09:18
PROVIDERS: ATTEND Nurse Practitioner Family
DX: E78.5 Hyperlipidemia, unspecified (principal); E11.9 Type 2 diabetes mellitus without complications; I10 Essential (primary) hypertension; Z12.5 Encounter for screening for malignant neoplasm of prostate

== ENCOUNTER → 2022-09-20 | Outpatient (CLI) | payer MEDICARE ==
[2022-09-20 14:06] LABS: BLOOD UREA NITROGEN 14 MG/DL (9-23); CALCIUM LEVEL 9.4 MG/DL (8.3-10.6); CARBON DIOXIDE LEVEL 25 MMOL/L (20-31); CHLORIDE LEVEL 103 MMOL/L (98-107); CREATININE FOR GFR 0.75 MG/DL (0.70-1.30); GLOMERULAR FILTRATION RATE > 60.0 (>42); GLUCOSE, FASTING 174 MG/DL (74-106); POTASSIUM SERUM 4.9 MMOL/L (3.5-5.1); SODIUM LEVEL 136 MMOL/L (136-145)
[2022-09-20 14:07] LABS: VITAMIN B12 LEVEL 318 PG/ML (211-911)
[2022-09-20 14:17] LABS: HEPATITIS B SURFACE ANTIGEN NEGATIVE (NEGATIVE)
[2022-09-20 14:37] LABS: HEPATITIS B CORE ANTIBODY IGM NEGATIVE (NEGATIVE)
[2022-09-20 14:38] LABS: HEPATITIS C VIRUS ABY INDEX 0.1 INDEX (<0.8)
== END ==
LOC: M PLALAB 09:06
PROVIDERS: ATTEND Nurse Practitioner Family
DX: E53.8 Deficiency of other specified B group vitamins (principal); D75.89 Other specified diseases of blood and blood-forming organs; R74.8 Abnormal levels of other serum enzymes; I10 Essential (primary) hypertension; E11.9 Type 2 diabetes mellitus without complications; E78.5 Hyperlipidemia, unspecified; I25.10 Atherosclerotic heart disease of native coronary artery without angina pectoris; E55.9 Vitamin D deficiency, unspecified
CPT/HCPCS: 36415; 80048; 80503; 82607; 86705; 86709; 86803; 87340; G0463

== ENCOUNTER → 2022-10-01 | Outpatient (CLI) | payer MEDICARE | LOC: M SOG 07:57 | PROVIDERS: ATTEND Orthopaedic Surgery Hand Surgery | DX: M79.641 Pain in right hand (principal); M79.642 Pain in left hand; M79.644 Pain in right finger(s); M79.645 Pain in left finger(s); M19.042 Primary osteoarthritis, left hand; M19.041 Primary osteoarthritis, right hand; M18.2 Bilateral post-traumatic osteoarthritis of first carpometacarpal joints ==

== ENCOUNTER → 2022-11-08 | Outpatient (CLI) | payer MEDICARE ==
[2022-11-08 08:22] LABS: ALBUMIN 3.7 G/DL (3.2-5.2); BILIRUBIN,DIRECT 0.2 MG/DL (<0.4); BILIRUBIN,TOTAL 0.6 MG/DL (0.3-1.2); TOTAL PROTEIN 7.4 G/DL (5.7-8.2)
== END ==
LOC: M LAB 07:25
PROVIDERS: ATTEND Nurse Practitioner Family
DX: R74.8 Abnormal levels of other serum enzymes (principal)

== ENCOUNTER 2023-01-18 18:47 | Emergency (ER) | payer MEDICARE ==
[~2023-01-18] VITALS: Ht 177.8 cm; Wt 87.3 kg
[2023-01-18 18:47] VITALS: BP 192/98; TEMP 97.1; O2SAT 96
[2023-01-18] MEDS ORDERED: JARD1TAB3 PO (18:53)
[2023-01-18] MEDS ORDERED: LISI30TA4 PO (18:53)
[2023-01-18] MEDS ORDERED: PRED10TA2 PO (19:20)
[2023-01-18] MEDS ORDERED: predniSONE 20 MG TAB PO ONE (19:20)
[2023-01-18] MEDS ORDERED: TRIA1CR80 TOP (19:20)
== END 2023-01-18 19:37 | disposition home or self-care (01) ==
LOC: M ED 18:47
DX: L50.0 Allergic urticaria (principal); I25.2 Old myocardial infarction; I10 Essential (primary) hypertension; E11.9 Type 2 diabetes mellitus without complications; R51.9 Headache, unspecified; K21.9 Gastro-esophageal reflux disease without esophagitis; M54.2 Cervicalgia; Z91.030 Bee allergy status; Z88.5 Allergy status to narcotic agent; Z79.899 Other long term (current) drug therapy
CPT/HCPCS: 99283; J7512

== ENCOUNTER → 2023-03-04 | Outpatient (CLI) | payer MEDICARE ==
[~2023-03-04] MED LIST changes: +JARD1TAB3 PO; +LISI30TA4 PO; +PRED10TA2 PO; +TRIA1CR80 TOP
[2023-03-04 10:29] LABS: BASO # 0.1 10^3/uL (0.0-0.2); BASO % 0.7 % (0.0-1.0); EOS # 0.2 10^3/uL (0.0-0.5); EOS % 2.2 % (0.0-3.0); HEMATOCRIT 48.5 % (42.0-52.0); HEMOGLOBIN 15.7 g/dl (13.5-17.5); LYMPH # 2.8 10^3/uL (1.5-5.0); MEAN CORPUSCULAR HEMOGLOBIN 32.7 pg (27.0-33.0); MEAN CORPUSCULAR HGB CONC 32.4 g/dl (32.0-36.5); MONO % 11.3 % (2.0-8.0); NEUTROPHILS # 4.9 10^3/uL (1.5-8.5); NEUTROPHILS % 54.5 % (36.0-66.0); PLATELET COUNT, AUTOMATED 275 10^3/uL (150-450); WHITE BLOOD COUNT 8.9 10^3/uL (4.0-10.0)
[2023-03-04 10:55] LABS: CREATININE, URINE 56.4 MG/DL
[2023-03-04 10:56] LABS: MAU/CREAT RATIO 115.2 MCG/MG (0.0-30.0)
[2023-03-04 10:58] LABS: ALBUMIN 3.6 G/DL (3.2-5.2); ALKALINE PHOSPHATASE 92 U/L (46-116); ALT/SGPT 30 U/L (7.0-40); AST/SGOT 25 U/L (<34); BILIRUBIN,TOTAL 0.8 MG/DL (0.3-1.2); BLOOD UREA NITROGEN 19 MG/DL (9-23); CALCIUM LEVEL 9.8 MG/DL (8.3-10.6); CARBON DIOXIDE LEVEL 28 MMOL/L (20-31); CHLORIDE LEVEL 107 MMOL/L (98-107); CHOLESTEROL LEVEL 120 MG/DL (<200); CHOLESTEROL RISK RATIO 3.45 (<5); CREATININE FOR GFR 0.81 MG/DL (0.70-1.30); GLOMERULAR FILTRATION RATE > 60.0 (>42); GLUCOSE, FASTING 172 MG/DL (74-106); HDL CHOLESTEROL 34.7 MG/DL (>40); LDL CHOLESTEROL 59.1 MG/DL (<100); NON-HDL-C 85.3 MG/DL; POTASSIUM SERUM 5.4 MMOL/L (3.5-5.1); SODIUM LEVEL 139 MMOL/L (136-145); TOTAL 25(OH) VITAMIN D 31.1 NG/ML (20.0-100.0); TOTAL PROTEIN 7.4 G/DL (5.7-8.2); TRIGLYCERIDES LEVEL 131 MG/DL (<150)
[2023-03-04 10:59] LABS: VITAMIN B12 LEVEL 444 PG/ML (211-911)
== END ==
LOC: M WUC 08:18
PROVIDERS: ATTEND Nurse Practitioner Family
DX: E78.5 Hyperlipidemia, unspecified (principal); I10 Essential (primary) hypertension; E53.8 Deficiency of other specified B group vitamins; E55.9 Vitamin D deficiency, unspecified; E11.9 Type 2 diabetes mellitus without complications; Z12.5 Encounter for screening for malignant neoplasm of prostate
CPT/HCPCS: 36415; 80053; 80061; 82043; 82306; 82607; 83036; 85025; G0103

== ENCOUNTER → 2023-06-17 | Outpatient (CLI) | payer MEDICARE ==
[2023-06-17 10:48] LABS: HEMOGLOBIN A1c 6.6 % (4.0-6.0)
[2023-06-17 10:49] LABS: ALBUMIN 3.6 G/DL (3.2-5.2); ALKALINE PHOSPHATASE 79 U/L (46-116); ALT/SGPT 26 U/L (7.0-40); AST/SGOT 24 U/L (<34); BILIRUBIN,TOTAL 0.7 MG/DL (0.3-1.2); BLOOD UREA NITROGEN 17 MG/DL (9-23); CALCIUM LEVEL 9.7 MG/DL (8.3-10.6); CARBON DIOXIDE LEVEL 26 MMOL/L (20-31); CHLORIDE LEVEL 106 MMOL/L (98-107); CREATININE FOR GFR 0.68 MG/DL (0.70-1.30); GLOMERULAR FILTRATION RATE > 60.0 (>42); GLUCOSE, FASTING 119 MG/DL (74-106); SODIUM LEVEL 138 MMOL/L (136-145); TOTAL PROTEIN 7.1 G/DL (5.7-8.2)
== END ==
LOC: M WUC 08:05
PROVIDERS: ATTEND Nurse Practitioner Family
DX: E11.9 Type 2 diabetes mellitus without complications (principal)

== ENCOUNTER → 2023-09-05 | Outpatient (REF) | payer MEDICARE | LOC: M SFHCDERM 17:28 | PROVIDERS: ATTEND Physician Assistant | DX: C44.219 Basal cell carcinoma of skin of left ear and external auricular canal (principal) ==

== ENCOUNTER → 2023-12-11 | Outpatient (CLI) | payer MEDICARE ==
[2023-12-11 08:38] LABS: BASO # 0.1 10^3/uL (0.0-0.2); BASO % 0.8 % (0.0-1.0); EOS # 0.5 10^3/uL (0.0-0.5); EOS % 5.9 % (0.0-3.0); HEMATOCRIT 46.9 % (42.0-52.0); HEMOGLOBIN 15.6 g/dl (13.5-17.5); LYMPH # 2.3 10^3/uL (1.5-5.0); LYMPH % 28.3 % (24.0-44.0); MEAN CORPUSCULAR HEMOGLOBIN 33.5 pg (27.0-33.0); MEAN CORPUSCULAR HGB CONC 33.3 g/dl (32.0-36.5); MEAN CORPUSCULAR VOLUME 100.9 fl (80.0-96.0); MONO # 0.8 10^3/uL (0.0-0.8); MONO % 10.1 % (2.0-8.0); NEUTROPHILS # 4.3 10^3/uL (1.5-8.5); NEUTROPHILS % 54.5 % (36.0-66.0); PLATELET COUNT, AUTOMATED 331 10^3/uL (150-450); RED BLOOD COUNT 4.65 10^6/uL (4.30-6.10); WHITE BLOOD COUNT 7.9 10^3/uL (4.0-10.0)
[2023-12-11 08:50] LABS: HEMOGLOBIN A1c 6.6 % (4.0-6.0)
[2023-12-11 09:05] LABS: PSA SCREENING 0.58 NG/ML (< 4.00)
[2023-12-11 09:07] LABS: CREATININE, URINE 69.9 MG/DL
[2023-12-11 09:08] LABS: ALBUMIN 3.4 G/DL (3.2-5.2); ALKALINE PHOSPHATASE 83 U/L (46-116); ALT/SGPT 37 U/L (7.0-40); AST/SGOT 24 U/L (<34); BILIRUBIN,TOTAL 0.8 MG/DL (0.3-1.2); BLOOD UREA NITROGEN 15 MG/DL (9-23); CALCIUM LEVEL 9.8 MG/DL (8.3-10.6); CARBON DIOXIDE LEVEL 26 MMOL/L (20-31); CHLORIDE LEVEL 108 MMOL/L (98-107); CHOLESTEROL LEVEL 115 MG/DL (<200); CHOLESTEROL RISK RATIO 3.91 (<5); CREATININE FOR GFR 0.72 MG/DL (0.70-1.30); GLOMERULAR FILTRATION RATE > 60.0 (>42); GLUCOSE, FASTING 122 MG/DL (74-106); HDL CHOLESTEROL 29.4 MG/DL (>40); MAGNESIUM LEVEL 1.8 MG/DL (1.8-2.4); NON-HDL-C 85.6 MG/DL; POTASSIUM SERUM 4.9 MMOL/L (3.5-5.1); SODIUM LEVEL 140 MMOL/L (136-145); TOTAL PROTEIN 6.9 G/DL (5.7-8.2); TRIGLYCERIDES LEVEL 133 MG/DL (<150)
[2023-12-11 09:09] LABS: TOTAL 25(OH) VITAMIN D 30.8 NG/ML (20.0-100.0)
[2023-12-11 09:10] LABS: VITAMIN B12 LEVEL 344 PG/ML (211-911)
== END ==
LOC: M LAB 07:52
PROVIDERS: ATTEND Nurse Practitioner Family
DX: D75.89 Other specified diseases of blood and blood-forming organs (principal); I10 Essential (primary) hypertension; E78.5 Hyperlipidemia, unspecified; E55.9 Vitamin D deficiency, unspecified; E11.9 Type 2 diabetes mellitus without complications; Z12.5 Encounter for screening for malignant neoplasm of prostate
CPT/HCPCS: 36415; 80053; 80061; 82043; 82306; 82607; 83036; 83735; 85025; G0103

== ENCOUNTER → 2024-12-07 | Outpatient (CLI) | payer MEDICARE ==
[~2024-12-07] MED LIST changes: +GLIP10TA15 PO; -GLIP10TA6 PO
== END ==
LOC: M RAD 15:45
PROVIDERS: ATTEND Internal Medicine Nephrology
DX: N18.2 Chronic kidney disease, stage 2 (mild) (principal)

== ENCOUNTER → 2025-02-22 | Outpatient (CLI) | payer MEDICARE ==
[~2025-02-22] MED LIST changes: -IBUP-1022; +IBUP600T42
[2025-02-22 08:21] LABS: BASO # 0.1 10^3/uL (0.0-0.2); BASO % 0.5 % (0.0-1.0); EOS # 0.4 10^3/uL (0.0-0.5); EOS % 3.7 % (0.0-3.0); LYMPH # 2.2 10^3/uL (1.5-5.0); LYMPH % 20.5 % (24.0-44.0); MONO # 1.0 10^3/uL (0.0-0.8); MONO % 9.2 % (2.0-8.0); NEUTROPHILS # 7.0 10^3/uL (1.5-8.5); NEUTROPHILS % 65.9 % (36.0-66.0)
[2025-02-22 08:42] LABS: CREATININE, URINE 61.0 MG/DL
[2025-02-22 08:44] LABS: ALT/SGPT 34 U/L (7.0-40); AST/SGOT 29 U/L (<34); CALCIUM LEVEL 9.2 MG/DL (8.3-10.6); CARBON DIOXIDE LEVEL 26 MMOL/L (20-31); CHLORIDE LEVEL 107 MMOL/L (98-107); CHOLESTEROL LEVEL 120 MG/DL (<200); CHOLESTEROL RISK RATIO 3.65 (<5); CREATININE FOR GFR 0.76 MG/DL (0.70-1.30); GLOMERULAR FILTRATION RATE > 90.0 (>42); LDL CHOLESTEROL 51.8 MG/DL (<100); NON-HDL-C 87.2 MG/DL; POTASSIUM SERUM 4.8 MMOL/L (3.5-5.1); SODIUM LEVEL 140 MMOL/L (136-145); TRIGLYCERIDES LEVEL 177 MG/DL (<150)
[2025-02-22 08:45] LABS: FREE T4 1.10 NG/DL (0.89-1.76); VITAMIN B12 LEVEL 378 PG/ML (211-911)
[2025-02-22 08:55] LABS: MALB URINE SIEMENS 473.0 MG/L; MAU/CREAT RATIO 775.4 MCG/MG (0.0-30.0)
[2025-02-22 09:00] LABS: ESTIMATED AVERAGE GLUCOSE 160.0 MG/DL (60-110)
[2025-02-23 20:27] LABS: T P ELECTROPHORESIS SO 7.5 g/dL (6.1-8.1)
== END ==
LOC: M LAB 07:16
PROVIDERS: ATTEND Nurse Practitioner Family
DX: E11.9 Type 2 diabetes mellitus without complications (principal); E78.5 Hyperlipidemia, unspecified; E53.8 Deficiency of other specified B group vitamins; D75.89 Other specified diseases of blood and blood-forming organs; E55.9 Vitamin D deficiency, unspecified